=== PATIENT | male | born 1965 | race Caucasian/White ===

== ENCOUNTER 2024-02-28 19:25 | Inpatient (IN) | payer MEDICARE, OTHER ==
[~2024-02-28] VITALS: Ht 177.8 cm; Wt 107.0 kg
[2024-02-28] MEDS ORDERED: RISP2TAB5 PO (19:45)
[2024-02-29] MEDS ORDERED: MAGNESIUM HYDROXIDE 30 ML LIQUID UDC PO PRN
[2024-02-29] MEDS ORDERED: TEMAZEPAM 7.5 MG CAPSULE PO PRN
[2024-02-29] MEDS ORDERED: CLONAZEPAM 0.5 MG TABLET PO PRN ×2
[2024-02-29] MEDS ORDERED: MAG HYDROX/AL HYDROX/SIMETH 30 ML LIQUID UDC PO PRN
[2024-02-29] MEDS: BLOOD SUGAR DIAGNOSTIC 1 EACH STRIP VI ONE (00:32)
[2024-02-29 01:15] VITALS: BP 125/93; TEMP 98.3; O2SAT 94
[2024-02-29 08:49] VITALS: BP 119/83; TEMP 98.2; O2SAT 98
[2024-02-29] MEDS: risperiDONE 2 MG TABLET PO SCH (12:03)
[2024-02-29 18:23] VITALS: BP 107/68; TEMP 98.1; O2SAT 98
[2024-02-29 20:00] VITALS: BP 102/75; TEMP 97.7; O2SAT 97
[2024-03-01 07:54] LABS: BASOPHILS # (AUTO) 0.1 K/UL (0.0-0.2); BASOPHILS % (AUTO) 0.9 % (0.0-2.0); EOSINOPHILS # (AUTO) 0.5 K/uL (0.0-0.7); EOSINOPHILS % (AUTO) 7.8 % (0.0-7.0); HEMOGLOBIN 13.8 g/dL (12.5-16.3); LYMPHOCYTES % (AUTO) 29.6 % (20.5-51.5); MEAN CORPUSCULAR HEMOGLOBIN 31.6 uug (23.8-33.4); MEAN CORPUSCULAR HGB CONC 34 g/dL (32.5-36.3); MEAN CORPUSCULAR VOLUME 93.7 fL (73.0-96.2); MONOCYTES # (AUTO) 0.7 K/uL (0.1-1.30); MONOCYTES % (AUTO) 10.7 % (0.0-11.0); NEUTROPHILS # (AUTO) 3.5 K/uL (1.8-8.9); PLATELET COUNT (AUTO) 233 K/uL (152-348); RED BLOOD CELL COUNT(AUTO) 4.38 MIL/uL (4.06-5.63); RED CELL DISTRIBUTION WIDTH 13.2 % (12.1-16.2); WHITE BLOOD COUNT (AUTO) 6.9 K/uL (3.6-10.2)
[2024-03-01 07:58] LABS: DIFFERENTIAL COMMENT 1
[2024-03-01 08:07] LABS: CALCIUM 9.3 mg/dL (8.5-10.1); MAGNESIUM 2.1 mg/dL (1.8-2.4); PHOSPHOROUS 4.1 mg/dL (2.5-4.9)
[2024-03-01 09:43] VITALS: BP 117/85; TEMP 98.3; O2SAT 98
[2024-03-01 17:32] VITALS: BP 112/83; TEMP 98; O2SAT 95
[2024-03-01] MEDS: ACETAMINOPHEN 325 MG TABLET PO PRN (19:52)
[2024-03-01 20:11] VITALS: BP 122/82; TEMP 98; O2SAT 94
[2024-03-01] MEDS: TEMAZEPAM 7.5 MG CAPSULE PO PRN (22:42)
[2024-03-02 08:00] VITALS: BP 117/78; TEMP 97.8; O2SAT 97
[2024-03-02] MEDS ORDERED: ALBUTEROL SULFATE 8 GM HFA.AER.AD IH PRN (09:45)
[2024-03-02] MEDS ORDERED: ALBUTEROL SULFATE 2.5 MG/3 ML NEBU NEB PRN ×2 (10:00)
[2024-03-02 16:00] VITALS: BP 133/74; TEMP 97.6; O2SAT 97
[2024-03-02] MEDS: CHLORDIAZEPOXIDE HCL 25 MG CAPSULE PO SCH (16:22)
[2024-03-02 20:14] VITALS: BP 141/72; TEMP 97.9; O2SAT 96
[2024-03-03 07:58] VITALS: BP 119/81; TEMP 98.4; O2SAT 96
[2024-03-03 15:13] VITALS: BP 113/86; TEMP 98; O2SAT 96
[2024-03-03 19:51] VITALS: BP 120/78; TEMP 98.1; O2SAT 95
[2024-03-04 08:10] VITALS: BP 109/83; TEMP 98; O2SAT 99
[2024-03-04 16:14] VITALS: BP 111/74; TEMP 98; O2SAT 99
[2024-03-04] MEDS: risperiDONE 2 MG TABLET PO SCH (16:58)
[2024-03-04 20:16] VITALS: BP 112/70; TEMP 98.1; O2SAT 99
[2024-03-05 09:55] VITALS: BP 103/76; TEMP 98; O2SAT 96
[2024-03-05 16:23] VITALS: BP 120/84; TEMP 98; O2SAT 98
[2024-03-05 19:50] VITALS: BP 94/72; TEMP 97.7; O2SAT 96
[2024-03-06 07:58] VITALS: BP 121/88; TEMP 98; O2SAT 99
[2024-03-06] MEDS ORDERED: TEMAZEPAM 7.5 MG CAPSULE PO PRN (08:30)
[2024-03-06 15:25] VITALS: BP 110/69; TEMP 97.8; O2SAT 96
[2024-03-06 20:00] VITALS: BP 113/86; TEMP 98.1; O2SAT 94
[2024-03-07] MEDS: TEMAZEPAM 15 MG CAPSULE PO PRN (00:33)
[2024-03-07 09:09] VITALS: BP 103/76; TEMP 98; O2SAT 98
[2024-03-07 15:32] VITALS: BP 109/73; TEMP 98; O2SAT 98
[2024-03-07 20:00] VITALS: BP 107/79; TEMP 97.7; O2SAT 94
[2024-03-07] MEDS: TRAZODONE 50 MG TABLET PO PRN (20:52)
[2024-03-08 07:30] VITALS: BP 133/79; TEMP 98; O2SAT 98
[2024-03-08 16:03] VITALS: BP 119/86; TEMP 98; O2SAT 98
[2024-03-08 20:00] VITALS: BP 114/86; TEMP 98.4; O2SAT 94
[2024-03-09 07:54] VITALS: BP 114/73; TEMP 97.6; O2SAT 95
[2024-03-09 16:00] VITALS: BP 119/77; TEMP 97.8; O2SAT 96
[2024-03-09 20:00] VITALS: BP 128/85; TEMP 97.6; O2SAT 93
[2024-03-10 07:56] VITALS: BP 106/78; TEMP 98; O2SAT 96
[2024-03-10] MEDS: ENSURE WITH FIBER 237 ML LIQUID (CHOCOLATE) PO SCH (16:26)
[2024-03-10 16:42] VITALS: BP 129/70; TEMP 98; O2SAT 98
[2024-03-10 20:00] VITALS: BP 114/83; TEMP 97.9; O2SAT 97
[2024-03-11 08:10] VITALS: BP 111/78; TEMP 98; O2SAT 98
[2024-03-11 16:05] VITALS: BP 115/77; TEMP 98; O2SAT 98
[2024-03-11 20:00] VITALS: BP 117/82; TEMP 98; O2SAT 96
[2024-03-11] MEDS: TRAZODONE 50 MG TABLET PO PRN (21:10)
[2024-03-12 08:18] VITALS: BP 112/70; TEMP 98; O2SAT 98
[2024-03-12 15:53] VITALS: BP 98/77; TEMP 98; O2SAT 98
[2024-03-12 20:34] VITALS: BP 125/83; TEMP 98.1; O2SAT 96
[2024-03-13 08:03] VITALS: BP 116/86; TEMP 98; O2SAT 96
[2024-03-13 15:38] VITALS: BP 122/73; TEMP 98; O2SAT 98
[2024-03-13 20:14] VITALS: BP 120/74; TEMP 98.1; O2SAT 96
[2024-03-14 08:01] VITALS: BP 153/81; TEMP 98; O2SAT 97
[2024-03-14 09:00] VITALS: BP 128/78; TEMP 98; O2SAT 99
[2024-03-14 16:10] VITALS: BP 106/74; TEMP 98.8; O2SAT 94
[2024-03-14 20:17] VITALS: BP 126/76; TEMP 98.1; O2SAT 95
[2024-03-15 07:55] VITALS: BP 112/83; TEMP 97.7; O2SAT 95
[2024-03-15 15:55] VITALS: BP 113/87; TEMP 98; O2SAT 94
[2024-03-15 21:47] VITALS: BP 120/82; TEMP 98; O2SAT 98
[2024-03-16 08:00] VITALS: BP 106/72; TEMP 98.4; O2SAT 95
[2024-03-16 15:10] VITALS: BP 129/82; TEMP 98.2; O2SAT 100
[2024-03-16 20:00] VITALS: BP 107/77; TEMP 98.6; O2SAT 96
[2024-03-17 11:11] VITALS: BP 103/70; TEMP 97.5; O2SAT 94
[2024-03-17 20:06] VITALS: BP 106/74; TEMP 97.9; O2SAT 95
[2024-03-18 08:00] VITALS: BP 119/79; TEMP 98; O2SAT 98
[2024-03-18] MEDS: CLONAZEPAM 0.5 MG TABLET PO PRN (09:37)
== END 2024-03-18 15:25 | DRG 885 ==
LOC: ER 19:27 → GPS 23:13
PROVIDERS: ADMIT Psychiatry & Neurology Psychiatry; ATTEND Internal Medicine
DX: F33.2 Major depressive disorder, recurrent severe without psychotic features (principal); R45.851 Suicidal ideations; E78.5 Hyperlipidemia, unspecified; T71.162D Asphyxiation due to hanging, intentional self-harm, subsequent encounter; X83.8XXD Intentional self-harm by other specified means, subsequent encounter; X78.9XXD Intentional self-harm by unspecified sharp object, subsequent encounter; F10.20 Alcohol dependence, uncomplicated; E66.9 Obesity, unspecified; Z68.33 Body mass index [BMI] 33.0-33.9, adult; Z79.899 Other long term (current) drug therapy; I10 Essential (primary) hypertension
CPT/HCPCS: 36415; 71045; 83735; 84100; 85025; A4606; A4663